=== PATIENT | male | born 1945 | race Caucasian/White ===

== ENCOUNTER 2016-03-28 10:32 | Emergency (ER) | payer MEDICARE, OTHER ==
[2016-03-28] MEDS ORDERED: Adacel Vial IM ONE ×2 (10:52→10:57)
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
[2016-03-28 11:13] LABS: BASOPHIL % 0.4 % (0.0-0.4); Eosinophil % 2.9 % (0.00-5.0); Granulocytes % 69.1 % (36.0-66.0); Lymphocytes % 15.6 % (24.0-44.0); Mean Corpuscular Hemoglobin 31.5 pg (26-32); Mean Platelet Volume 9.9 fl (6-9.5); Platelet Count 325 K/mm3 (150-450); Red Cell Distribution Width 14.8 % (11.5-14.0); White Blood Count 6.9 K/mm3 (4.0-10.5)
[2016-03-28 11:26] LABS: Collection Type CCMS; Ph 5.5 (5-6)
[2016-03-28 11:27] LABS: Bacteria FEW /HPF (NEGATIVE); COMPLETE URINE MICROSCOPIC? YES; Epithelial Cells FEW /HPF (FEW)
[2016-03-28 11:43] LABS: ALBUMIN 3.5 g/dL (3.4-5.0); ANION GAP 11.6 MEQ/L (5-15); BILIRUBIN,TOTAL 0.4 mg/dL (0.2-1.0); Carbon Dioxide 28.6 mEq/L (21-32); Potassium 4.2 mEq/L (3.5-5.1); Total Protein 7.3 gm/dL (6.4-8.2)
[2016-03-28 11:45] VITALS: BP 152/86; PULSE 80
[2016-03-28 12:35] VITALS: O2SAT 94
--- NOTE | 2016-03-28 21:00 | XRAY ---
Indication: Swelling. Two-dimensional sonogram and color Doppler imaging of the major venous vessels of the left upper extremity was performed. Comparison: None No thrombus seen in the visualized left jugular, subclavian, axillary, basilic, brachial, cephalic, median cubital, radial, and ulnar veins. Extremity veins demonstrate normal compressibility. Venous waveforms are normal with and without augmentation. Impression: Left upper extremity negative for DVT. Comment: Preliminary report was given.
--- NOTE | 2016-03-28 21:01 | XRAY ---
Indication: Swelling. Comparison: None 2 views of the left forearm demonstrates diffuse soft tissue swelling/edema and faint vascular calcifications. No other bony, articular, or soft tissue abnormalities.
== END 2016-03-28 12:40 | disposition home or self-care (01) ==
LOC: ED 10:32
DX: M79.632 Pain in left forearm (principal); M79.89 Other specified soft tissue disorders; S50.812A Abrasion of left forearm, initial encounter; W54.8XXA Other contact with dog, initial encounter
CPT/HCPCS: 36415; 73090; 80053; 81000; 85025; 90471; 90715; 93971; 96372; 99283

== ENCOUNTER 2017-04-16 17:38 | Emergency (ER) | payer MEDICARE ==
[2017-04-16] MEDS ORDERED: NEOSYNEPHRINE 0.5% NASAL SPRAY/DROPS NS ONE (17:58)
[2017-04-16] MEDS ORDERED: NEOSYNEPHRINE 0.5% NASAL SPRAY/DROPS ONE (18:02)
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
[2017-04-16 18:21] VITALS: BP 135/89; PULSE 88
[2017-04-16 18:46] VITALS: O2SAT 95
== END 2017-04-16 18:53 | disposition home or self-care (01) ==
LOC: ED 17:38
DX: R04.0 Epistaxis (principal); Z86.73 Personal history of transient ischemic attack (TIA), and cerebral infarction without residual deficits; I48.91 Unspecified atrial fibrillation
CPT/HCPCS: 99282; A9270-GY

== ENCOUNTER 2017-12-27 15:44 | Emergency (ER) | payer MEDICARE ==
[2017-12-27 16:00] VITALS: BP 110/76; PULSE 76; O2SAT 93
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
[2017-12-27 16:28] LABS: Hematocrit 46.4 % (42-50); Hemoglobin 15.2 gm/dl (12.5-18.0); Mean Cell Volume 94.7 fl (78-100); Mean Corpuscular Hgb Concent. 32.8 g/dl (32-36); Mean Platelet Volume 9.7 fl (6-9.5); Platelet Count 321 K/mm3 (150-450); Red Cell Distribution Width 14.7 % (11.5-14.0); White Blood Count 10.7 K/mm3 (4.0-10.5)
[2017-12-27 16:31] LABS: INR 1.5 (0.8-3.0)
[2017-12-27 16:36] LABS: ALBUMIN 3.8 g/dL (3.5-5.0); ALKALINE PHOSPHATASE 55 U/L (38-126); ANION GAP 13.6 MEQ/L (5-15); BLOOD UREA NITROGEN 20 mg/dL (9-20); CHLORIDE 102 mmol/L (98-107); Calcium 9.5 mg/dL (8.4-10.2); Carbon Dioxide 27 mmol/L (22-30); Creatinine 1 1.09 mg/dL (0.66-1.25); Glucose 101 mg/dL (74-106); Potassium 4.2 mmol/L (3.5-5.1); SGOT/AST 25 U/L (17-59); SGPT/ALT 28 U/L (0-50); SODIUM 138 mmol/L (137-145); Total Protein 6.6 g/dL (6.3-8.2)
[2017-12-27 17:49] LABS: ANISOCYTOSIS 1+; Eosinophil 5 % (0.00-3.0); Lymphocytes 10 % (24-44); Monocyte 4 % (0.0-12.0); Neutrophils 81 % (36.-66.); Platelet Estimate NORMAL (NORMAL); Total Cells Counted 100
== END 2017-12-27 17:21 | disposition home or self-care (01) ==
LOC: ED 15:44
DX: R04.0 Epistaxis (principal); I10 Essential (primary) hypertension; Z79.01 Long term (current) use of anticoagulants; Z79.899 Other long term (current) drug therapy; Z86.73 Personal history of transient ischemic attack (TIA), and cerebral infarction without residual deficits; I48.91 Unspecified atrial fibrillation
CPT/HCPCS: 30901; 36415; 80053; 85025; 85610; 99283

== ENCOUNTER 2017-12-28 13:27 | Emergency (ER) | payer MEDICARE ==
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
[2017-12-28 14:15] VITALS: BP 108/66; PULSE 75; O2SAT 97
== END 2017-12-28 14:31 | disposition home or self-care (01) ==
LOC: ED 13:27
DX: Z46.89 Encounter for fitting and adjustment of other specified devices (principal)
CPT/HCPCS: 99283

== ENCOUNTER 2019-02-16 14:41 | Inpatient (IN) | payer MEDICARE ==
[2019-02-16] MEDS ORDERED: Sodium Chloride 0.9% 1000 ML 1,000 ML IV STA (14:48)
[2019-02-16] MEDS ORDERED: BABY ASPIRIN 81 MG CHEW PO ONE (14:48)
[2019-02-16] MEDS ORDERED: Zofran 4 MG/2 ML VIAL IV ONE (14:50)
[2019-02-16] MEDS ORDERED: Sodium Chloride 0.9% 1000 ML 1,000 ML ONE (14:58)
[2019-02-16] MEDS ORDERED: Zofran 4 MG/2 ML VIAL ONE (14:58)
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
[2019-02-16 15:33] LABS: Absolute Neutrophil Ct (ANC) 17.18 (1.4-6.9); BASOPHIL % 0.1 % (0.0-0.4); Basophil (Absolute #) 0.02 (0-0.4); Eosinophil % 0.7 % (0.00-5.0); Eosinophil (Absolute #) 0.14 (0-0.5); Hematocrit 54.9 % (42-50); Hemoglobin 17.7 gm/dl (12.5-18.0); Lymphocyte (Absolute #) 0.61 (1.0-4.6); Lymphocytes % 3.2 % (24.0-44.0); Mean Corpuscular Hemoglobin 30.3 pg (26-32); Mean Corpuscular Hgb Concent. 32.2 g/dl (32-36); Mean Platelet Volume 10.4 fl (6-9.5); Monocyte (Absolute #) 0.87 (0.0-1.3); Monocytes % 4.6 % (0.0-12.0); Neutrophil % 91.4 % (36.0-66.0); Platelet Count 335 K/mm3 (150-450); Red Blood Count 5.84 M/mm3 (4.1-5.6); Red Cell Distribution Width 15.9 % (11.5-14.0); White Blood Count 18.8 K/mm3 (4.0-10.5)
[2019-02-16 15:36] LABS: A-aADO2 60; ARTERIAL BLD GAS O2 SATURATION 99 % (95-100); ARTERIAL BLOOD GAS BASE EXCESS -6.6 (-2.0-2.0); ARTERIAL BLOOD GAS PCO2 27 mmHg (35-45); ARTERIAL BLOOD GAS PO2 163 mmHg (75-100); ARTERIAL BLOOD GAS pH 7.39 (7.35-7.45); CARBON DIOXIDE 17 mEq/L (23-27); HCO3- 16.3 (22-28); paO2 pAO1 0.73
[2019-02-16 15:37] LABS: ABG HEMOGLOBIN 18.1; ABG POTASSIUM 4.8 (3.5-5.1); ARTERIAL BLOOD GAS FIO2 36 %; CARBOXYHEMOGLOBIN 1.9 % THgb (0.0-6.9); HGB O2 SAT 96 g/dF (94-100); Methhemoglobin 1.2 % (1.4-1.5)
[2019-02-16 15:38] LABS: ABG SITE RIGHT RADIAL; ALLEN TEST OK? YES
[2019-02-16 16:12] LABS: INFLUENZA A NEGATIVE (NEGATIVE); INFLUENZA B NEGATIVE (NEGATIVE); RESPIRATORY SYNCTIAL VIRUS NEGATIVE (Negative)
[2019-02-16 16:21] LABS: ALBUMIN 4.3 g/dL (3.5-5.0); ALKALINE PHOSPHATASE 58 U/L (38-126); ANION GAP 15.9 MEQ/L (5-15); BLOOD UREA NITROGEN 27 mg/dL (9-20); CHLORIDE 107 mmol/L (98-107); Carbon Dioxide 25 mmol/L (22-30); Creatinine 1 1.41 mg/dL (0.66-1.25); ETHYL ALCOHOL < 10 mg/dL (0-10); Glucose 104 mg/dL (74-106); LIPASE 85 U/L (23-300); NT PRO BNP 1520 pg/mL (0-900); Potassium 5.4 mmol/L (3.5-5.1); SGOT/AST 30 U/L (17-59); SGPT/ALT 20 U/L (0-50); SODIUM 143 mmol/L (137-145); Total Protein 8.2 g/dL (6.3-8.2)
--- NOTE | 2019-02-16 16:40 | XRAY ---
Indication: Short of breath. Comparison: February 23, 2017. PA/lateral chest again hyperinflated with new minimal bibasilar discoid atelectasis/scarring. Upper lungs clear. Heart is not enlarged. Bony thorax intact again with mild osteopenia and degenerative changes. Impression: Nonacute hyperinflated chest with chronic features.
[2019-02-16] MEDS ORDERED: Zithromax 500 MG/ 250 ML NaCl Premix 500 MG/250 ML IVPB IV ONE (16:45)
[2019-02-16] MEDS: Zithromax 500 MG/ 250 ML NaCl Premix 500 MG/250 ML IVPB IV SCH (16:47)
[2019-02-16] MEDS ORDERED: PROVENTIL 2.5 MG/3 ML NEB IH PRN (17:56)
[2019-02-16] MEDS ORDERED: TYLENOL 325 MG PO PRN (18:34)
[2019-02-16] MEDS ORDERED: Zofran 4 MG/2 ML VIAL IV PRN (18:36)
[2019-02-16] MEDS ORDERED: MOTRIN 600 MG PO PRN (18:36)
[2019-02-16] MEDS ORDERED: PROVENTIL 2.5 MG/3 ML NEB IH SCH (19:00)
[2019-02-16] MEDS: Sodium Chloride 0.9% 1000 ML 1,000 ML IV SCH (19:22)
[2019-02-16] MEDS: DUONEB 0.5-3 MG/3 ml Neb IH SCH ×2 (19:52→23:49)
[2019-02-16] MEDS: COREG 12.5 MG PO SCH (21:52)
[2019-02-16] MEDS: ZOCOR 20MG PO SCH (21:53)
[2019-02-16] MEDS ORDERED: LOTRIMIN CREAM 30 GM TP SCH (22:00)
[2019-02-17] MEDS: DUONEB 0.5-3 MG/3 ml Neb IH SCH ×6 (03:30→23:21)
[2019-02-17 04:57] LABS: BASOPHIL % 0.1 % (0.0-0.4); Basophil (Absolute #) 0.01 (0-0.4); Eosinophil % 0.1 % (0.00-5.0); Eosinophil (Absolute #) 0.01 (0-0.5); Hematocrit 46.4 % (42-50); Hemoglobin 14.8 gm/dl (12.5-18.0); Lymphocyte (Absolute #) 0.46 (1.0-4.6); Lymphocytes % 4.9 % (24.0-44.0); Mean Cell Volume 94.7 fl (78-100); Mean Corpuscular Hemoglobin 30.2 pg (26-32); Mean Corpuscular Hgb Concent. 31.9 g/dl (32-36); Monocyte (Absolute #) 0.13 (0.0-1.3); Monocytes % 1.4 % (0.0-12.0); Neutrophil % 93.5 % (36.0-66.0); Platelet Count 305 K/mm3 (150-450); Red Cell Distribution Width 15.8 % (11.5-14.0); White Blood Count 9.4 K/mm3 (4.0-10.5)
[2019-02-17 05:25] LABS: ANION GAP 13.5 MEQ/L (5-15); BLOOD UREA NITROGEN 29 mg/dL (9-20); CHLORIDE 109 mmol/L (98-107); Carbon Dioxide 23 mmol/L (22-30); Creatinine 1 1.23 mg/dL (0.66-1.25); Glucose 120 mg/dL (74-106); Potassium 4.4 mmol/L (3.5-5.1); SODIUM 141 mmol/L (137-145)
[2019-02-17] MEDS ORDERED: PROVENTIL 2.5 MG/3 ML NEB IH ONE (06:51)
[2019-02-17 07:03] LABS: Slide Review 1 YES
[2019-02-17] MEDS: ELIQUIS 2.5 MG TABLET PO SCH ×2 (10:48→20:33)
[2019-02-17] MEDS: Imdur 30 MG PO SCH (10:48)
[2019-02-17] MEDS: COREG 12.5 MG PO SCH ×2 (10:49→20:33)
[2019-02-17] MEDS: Pepcid 20 MG PO SCH (10:49)
[2019-02-17] MEDS: LOTRIMIN CREAM 30 GM TP SCH ×2 (10:49→20:37)
--- NOTE | 2019-02-17 13:08 | HP ---
HISTORY OF PRESENT ILLNESS: This is a 73 year-old patient of mine with multiple chronic health problems. He presented to the emergency department after having diarrhea and vomiting for one day. His daughter reported that he could not get to the bathroom before having the loose stool so she called the ambulance to have him brought to the emergency department. He was found to be hypoxic in the emergency department. He reported feeling much better today. When I saw him this morning he said he had no more stools and was asking to go home. REVIEW OF SYSTEMS: No fever. He has a dry cough that is nonproductive at baseline. No abdominal pain. No chest pain. No shortness of breath. No rashes. No lower extremity edema. MEDICATIONS: Please see the home medication reconciliation form. ALLERGIES: NKDA. PAST MEDICAL HISTORY: Stroke causing right hemiparesis that happened February 2017. Hypertension. Atrial fibrillation. Chronic obstructive pulmonary disease that has been mild in the past. Pressure ulcer in the past. Aphasia. PAST SURGICAL HISTORY: Cholecystectomy. 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 SOCIAL HISTORY: He is a former smoker. He stays with his granddaughter, Arvin, who is his main caregiver. FAMILY HISTORY: Noncontributory. PHYSICAL EXAMINATION: VITAL SIGNS: Temperature current 98.2F, temperature max 98.2F, heart rate 95, respiratory rate 18, blood pressure 105/56. Oxygen saturation 96% on 3 liters. GENERAL: He is sitting up in bed. His speech is hard to understand but he is alert. His granddaughter is at the bedside. His speech being hard to understand is his baseline. He is wearing oxygen by nasal cannula at 3 liters. CVS: His heart has an irregularly irregular rhythm with a normal rate. CHEST: Distant breath sounds throughout. No crackles or wheezes are appreciated. No retractions. ABDOMEN: Soft, nontender, nondistended with normal bowel sounds. EXTREMITIES: No clubbing, cyanosis or edema. SKIN: Warm, dry and intact. LABORATORY DATA AND TESTS: On admission white blood cell count was 18,800 and now 9,400. Hemoglobin and PLT count are normal. Potassium was 5.4 on admission and now 4.4. Creatinine was 1.4 and now 1.2. BNP was elevated at 1,520. Influenza A and B, respiratory syncytial virus were negative. Chest x-ray was read as nonacute hyperinflated chest with chronic features. ASSESSMENT AND PLAN: 1) GASTROENTERITIS: This seems to have somewhat resolved, will continue with IV fluids at 50 ml/hour and observation. 2) CHRONIC OBSTRUCTIVE PULMONARY DISEASE EXACERBATION: He was started on DuoNeb as well as azithromycin and he is on 3 liters of oxygen. Will try to wean the oxygen down if he wants to go home and does not have home oxygen. He usually does not require oxygen. 3) HISTORY OF ATRIAL FIBRILLATION: Will continue his home medication. 4) HISTORY OF CVA: Continue with home medications. 5) ACUTE KIDNEY INJURY: This has much improved with IV fluids, will continue to monitor.
[2019-02-17] MEDS: ZOCOR 20MG PO SCH (20:33)
[2019-02-17] MEDS ORDERED: Phenergan 25 MG INJ IV PRN (21:24)
[2019-02-18] MEDS: Sodium Chloride 0.9% 1000 ML 1,000 ML IV SCH (00:21)
[2019-02-18] MEDS ORDERED: ROCEPHIN 1 Gm-D5w 50 ml Bag** 1 G/50 ML IVPB IV SCH ×2 (01:00→22:00)
[2019-02-18] MEDS: DUONEB 0.5-3 MG/3 ml Neb IH SCH ×3 (03:18→12:00)
[2019-02-18 03:31] VITALS: BP 99/55
--- NOTE | 2019-02-18 08:17 | XRAY ---
Indication: Possible aspiration from vomiting. Comparison: February 16, 2019. Portable chest unchanged again demonstrating bibasilar discoid atelectasis/scarring without focal infiltrate, consolidation, or large effusion. Heart is not enlarged. No new/acute findings. Comment: Preliminary interpretation was made by [facility]. No critical discrepancy.
[2019-02-18] MEDS: Zithromax 500 MG/ 250 ML NaCl Premix 500 MG/250 ML IVPB IV SCH (08:53)
[2019-02-18] MEDS: COREG 12.5 MG PO SCH (08:53)
[2019-02-18] MEDS: Imdur 30 MG PO SCH (08:54)
[2019-02-18] MEDS: ELIQUIS 2.5 MG TABLET PO SCH (08:54)
[2019-02-18] MEDS: Pepcid 20 MG PO SCH (08:54)
[2019-02-18] MEDS: LOTRIMIN CREAM 30 GM TP SCH (09:03)
[2019-02-18] MEDS ORDERED: FLUZONE HIGH-DOSE 2019-20 SYR IM ONE ×2 (10:00→13:00)
[2019-02-18 12:35] VITALS: PULSE 80; O2SAT 96
--- NOTE | 2019-02-18 13:29 | PCM.DS ---
Discharge Summary Date of Admission: 02/16/19 17:29 Admitting Physician: AYLA ASTORGA MD Primary Care Provider: CECIL LOPEZ Allergies Allergies No Known Drug Allergies Allergy (Verified 02/16/19 14:57) Hospital Summary - Hospital Course Hospital Course: Pt is a 73 yo male pt of Dr. Lopez with hx CVA (with speech deficit), hx afib, HTN, COPD and HPV who was admitted with gastroenteritis and COPD exacerbation. He has been on duonebs and zithromax, no steroids required. Initially he had some diarrhea but that has resolved. He did vomit once last night, but has been dixon po today with no nausea or vomiting. His breathing is good. He let me know, with some difficulty but in no uncertain terms, that he wants to go home. Last night after he vomiting the nurse was afraid he may have aspirated; however CXR showed no change and he has had no lingering sequela. He is not on any O2 at home. Has been on 3L O2 NC here; will qualify him for O2 at home prior to discharge. Home on po zithromax to finish 5 days. F/u with Dr. Lopez. - Vitals & Intake/Output Vital Signs: Vital Signs Temperature 96.9 F 02/18/19 12:00 Pulse Rate 80 02/18/19 12:00 Respiratory Rate 20 02/18/19 12:00 Blood Pressure 99/55 02/18/19 02:00 O2 Sat by Pulse Oximetry 96 02/18/19 12:00 Oxygen-Last Documented O2 Percentage 3 Liters = 32% Intake & Output: Intake & Output 02/16/19 02/17/19 02/18/19 02/19/19 11:59 11:59 11:59 11:59 Intake Total 1940 2586 240 Output Total 202 Balance 1940 2384 240 Weight 69.8 kg 70 kg - Lab Result Diagrams: 02/17/19 04:35 02/17/19 04:35 Micro Results-Entire Visit: Microbiology 02/16/19 15:50 Blood Culture - Preliminary Blood NO GROWTH TO DATE 02/16/19 15:30 Blood Culture - Preliminary Blood NO GROWTH TO DATE - Radiology Exams Ordered Rad Exams-Entire Visit: Radiology Procedures Category Date Time Status CHEST 1 VIEW (PORTABLE) Stat Exams 02/18/19 00:01 Completed CHEST 2 VIEWS (PA AND LAT) Stat Exams 02/16/19 14:48 Completed - Procedures and Test Procedures and Tests throughout Hospitalization: Therapy Orders & Screens 02/16/19 14:53 EKG STAT Comment: 02/16/19 17:56 Oxygen NASAL CANNULA 3 lpm Comment: Diagnosis: COPD exacerbation with hypoxia Peak Expiratory Flow Rate ONCE Comment: Reason For Exam: Diagnosis: COPD exacerbation with hypoxia Respiratory Therapy Assessment DAILY Comment: Diagnosis: COPD exacerbation with hypoxia 02/16/19 18:31 RT Screen per Nursing Assess ONCE Comment: Protocol Order Physician Instructions: Greater than 3 points order RT Admission Screen Reason For Exam: Triggered on Admission Diagnosis: copd exacerbation Diagnosis: copd exacerbation Pneumonia: No Home O2: No Asthma: No CHF: Yes Home CPAP/BIPAP: No Home Nebs/MDI: Yes Total Points: 8 Discharge Exam General Appearance: no apparent distress, alert Neurologic Exam: cooperative, other (speech is at times garbled, but with effort he can say things clearly. Comprehension appears unimpaired.) Eye Exam: eyes nml inspection Ears, Nose, Throat Exam: moist mucous membranes Neck Exam: normal inspection Respiratory Exam: lungs clear, diminished breath sounds, No crackles/rales, No rhonchi, No wheezing Cardiovascular Exam: regular rate/rhythm, normal heart sounds, No murmur Back Exam: normal inspection, No rash Extremity Exam: normal inspection, No pedal edema, No swelling Skin Exam: normal color, warm, dry, No rash Final Diagnosis/Problem List - Final Discharge Diagnosis/Problem (1) COPD exacerbation Current Visit: Yes Status: Acute Assessment & Plan: Home to finish 7d zithromax. Code(s): J44.1 - CHRONIC OBSTRUCTIVE PULMONARY DISEASE W (ACUTE) EXACERBATION (2) Acute hypoxemic respiratory failure Current Visit: Yes Status: Acute Assessment & Plan: Home on O2. Pt is SCO, would be more comfortable at home. Can do duonebs, O2, and po antibiotics there. Code(s): J96.01 - ACUTE RESPIRATORY FAILURE WITH HYPOXIA (3) Atrial fibrillation Current Visit: Yes Status: Chronic Assessment & Plan: On Eliquis. Code(s): I48.91 - UNSPECIFIED ATRIAL FIBRILLATION (4) Aphasia as late effect of stroke Current Visit: No Status: Chronic Code(s): I69.320 - APHASIA FOLLOWING CEREBRAL INFARCTION - Discharge Disposition: Home, Self-Care Condition: Stable Prescriptions: New Albuterol/Ipratropium 3ml Neb* [DUONEB 0.5-3 MG/3 ml Neb] 3 ml IH QID PRN # 30 ampul.neb PRN Reason: Cough Azithromycin [Zithromax] 250 mg PO DAILY #2 tablet Continue Lisinopril [Zestril] 2.5 mg PO DAILY Famotidine 20 mg [Pepcid 20 MG] 40 mg PO DAILY Atorvastatin Calcium 40 mg PO HS Albuterol Sulfate Mdi [Proair Hfa MDI] 2 puffs IH QID Clotrimazole [Lotrimin AF] 12 gm TP BID Carvedilol 25 mg PO BID #0 Isosorbide Mononitrate [Isosorbide Mononitrate ER] 30 mg DAILY Apixaban [Eliquis] 5 mg PO BID Follow up with: CECIL LOPEZ [Primary Care Provider] - 1 Week
== END 2019-02-18 16:00 | disposition home or self-care (01) | DRG 190 ==
LOC: ED 14:41 → MED SURG 17:29
PROVIDERS: ADMIT Family Medicine; ATTEND Internal Medicine
DX: J44.1 Chronic obstructive pulmonary disease with (acute) exacerbation (principal); J96.01 Acute respiratory failure with hypoxia; N17.9 Acute kidney failure, unspecified; I48.91 Unspecified atrial fibrillation; I69.320 Aphasia following cerebral infarction; Z79.01 Long term (current) use of anticoagulants; Z79.899 Other long term (current) drug therapy; K52.9 Noninfective gastroenteritis and colitis, unspecified; I10 Essential (primary) hypertension
CPT/HCPCS: 36000; 36415; 36600; 71045; 71046; 80048; 80053; 82375; 82803; 83605; 83690; 83880; 84484; 85025; 87040; 87631; 94150; 94640; 94760; 96360; 96374; 99285; G0480; 80307; 90662; J0456; J0696; J2405; J2550; J7609; A9270-GY

== ENCOUNTER 2019-02-23 13:44 | Observation (INO) | payer MEDICARE ==
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
--- NOTE | 2019-02-23 14:11 | XRAY ---
Indication: Short of breath. Comparison: February 18, 2019. Portable chest hyperinflated again with minimal bibasilar fibrosis/scarring. No focal infiltrate, consolidation, or large effusion. Heart and mediastinal structures within normal limits. Impression: Nonacute hyperinflated chest with chronic features.
[2019-02-23 14:36] LABS: Hemoglobin 15.8 gm/dl (12.5-18.0); Mean Cell Volume 95.1 fl (78-100); Mean Corpuscular Hgb Concent. 31.6 g/dl (32-36); Mean Platelet Volume 10.7 fl (6-9.5); Platelet Count 248 K/mm3 (150-450); Red Blood Count 5.26 M/mm3 (4.1-5.6); Red Cell Distribution Width 15.6 % (11.5-14.0); White Blood Count 10.7 K/mm3 (4.0-10.5)
[2019-02-23 14:42] LABS: A-aADO2 43; ABG POTASSIUM 4.3 (3.5-5.1); ARTERIAL BLOOD GAS BASE EXCESS 0.9 (-2.0-2.0); ARTERIAL BLOOD GAS PCO2 57 mmHg (35-45); ARTERIAL BLOOD GAS PO2 114 mmHg (75-100); ARTERIAL BLOOD GAS pH 7.31 (7.35-7.45); CARBOXYHEMOGLOBIN 1.8 % THgb (0.0-6.9); HCO3- 28.7 (22-28); HGB O2 SAT 96.6 g/dF (94-100); Lactic Acid 0.6 (0.4-2.0); Methhemoglobin 0.7 % (1.4-1.5); paO2 pAO1 0.73
[2019-02-23 14:43] LABS: ABG SITE RIGHT BRACHIAL
[2019-02-23 14:44] LABS: ALLEN TEST OK? YES
[2019-02-23 14:54] LABS: INR 1.47 (0.8-3.0); PROTIME 16.8 SECONDS (8.83-12.87)
[2019-02-23 15:06] LABS: ALBUMIN 3.8 g/dL (3.5-5.0); ALKALINE PHOSPHATASE 63 U/L (38-126); BLOOD UREA NITROGEN 12 mg/dL (9-20); CHLORIDE 104 mmol/L (98-107); Calcium 9.1 mg/dL (8.4-10.2); Carbon Dioxide 35 mmol/L (22-30); Creatinine 1 0.91 mg/dL (0.66-1.25); Glucose 122 mg/dL (74-106); NT PRO BNP 2600 pg/mL (0-900); Potassium 4.5 mmol/L (3.5-5.1); SGOT/AST 36 U/L (17-59); SGPT/ALT 37 U/L (0-50); SODIUM 143 mmol/L (137-145); Total Protein 7.2 g/dL (6.3-8.2)
[2019-02-23] MEDS ORDERED: Lasix 40 MG/4 ML IV ONE (15:14)
[2019-02-23] MEDS ORDERED: Lasix 40 MG/4 ML ONE (15:24)
[2019-02-23 15:41] LABS: Eosinophil 5 % (0.00-3.0); Lymphocytes 21 % (24-44); Monocyte 2 % (0.0-12.0); Neutrophils 72 % (36.-66.); Total Cells Counted 100
[2019-02-23 15:43] LABS: ANISOCYTOSIS 1+; Platelet Estimate NORMAL (NORMAL)
[2019-02-23 16:26] LABS: INFLUENZA A NEGATIVE (NEGATIVE); INFLUENZA B NEGATIVE (NEGATIVE); RESPIRATORY SYNCTIAL VIRUS NEGATIVE (Negative)
[2019-02-23 16:34] LABS: Appearance CLEAR (CLEAR); Bilirubin NEGATIVE (NEGATIVE); Blood NEGATIVE Ery/ul (0-5); Glucose NEGATIVE (NEGATIVE); Hyaline Casts 0-2 /LPF (0-2); Ketones NEGATIVE (NEGATIVE); Leukocyte Esterase NEGATIVE (NEGATIVE); Mucus SLIGHT /HPF (NEGATIVE); Nitrite NEGATIVE (NEGATIVE); Protein,Urine Dip NEGATIVE (Negative); Specific Gravity 1.009 (1.005-1.025); Urobilinogen NEGATIVE mg/dL (0-1); WBC 0-2 /HPF (0-5)
[2019-02-23] MEDS ORDERED: solu-MEDROL 125 MG IV ONE (17:09)
[2019-02-23] MEDS ORDERED: solu-MEDROL 125 MG ONE (17:43)
[2019-02-23] MEDS ORDERED: TYLENOL 325 MG PO PRN (18:16)
[2019-02-23] MEDS: Lasix 40 MG/4 ML IV SCH (19:02)
[2019-02-23] MEDS: solu-MEDROL 125 MG IV SCH ×2 (19:03→23:24)
[2019-02-23] MEDS ORDERED: DUONEB 0.5-3 MG/3 ml Neb IH ONE (19:15)
[2019-02-23] MEDS: DUONEB 0.5-3 MG/3 ml Neb IH SCH ×2 (19:21→23:17)
[2019-02-23] MEDS ORDERED: LOTRIMIN CREAM 30 GM TP PRN (20:52)
[2019-02-23] MEDS: Sodium Chloride 0.9% 1000 ML 1,000 ML IV SCH (21:20)
[2019-02-23] MEDS: ELIQUIS 2.5 MG TABLET PO SCH (21:21)
[2019-02-23] MEDS: ZOCOR 20MG PO SCH (21:21)
[2019-02-24 02:19] LABS: NT PRO BNP 2540 pg/mL (0-900)
[2019-02-24] MEDS: DUONEB 0.5-3 MG/3 ml Neb IH SCH ×6 (03:03→23:31)
[2019-02-24 03:05] LABS: TROPONIN < 0.012 ng/mL (0.000-0.034)
[2019-02-24] MEDS: Lasix 40 MG/4 ML IV SCH ×2 (03:49→17:49)
[2019-02-24 05:13] LABS: Hematocrit 45.4 % (42-50); Hemoglobin 14.5 gm/dl (12.5-18.0); Mean Cell Volume 93.6 fl (78-100); Mean Corpuscular Hemoglobin 29.9 pg (26-32); Mean Corpuscular Hgb Concent. 31.9 g/dl (32-36); Mean Platelet Volume 9.7 fl (6-9.5); Platelet Count 324 K/mm3 (150-450); Red Blood Count 4.85 M/mm3 (4.1-5.6); Red Cell Distribution Width 15.3 % (11.5-14.0); White Blood Count 12.6 K/mm3 (4.0-10.5)
[2019-02-24 06:03] LABS: ALBUMIN 3.5 g/dL (3.5-5.0); ALKALINE PHOSPHATASE 51 U/L (38-126); ANION GAP 12.1 MEQ/L (5-15); BLOOD UREA NITROGEN 15 mg/dL (9-20); CHLORIDE 100 mmol/L (98-107); Calcium 9.5 mg/dL (8.4-10.2); Carbon Dioxide 32 mmol/L (22-30); Creatinine 1 0.99 mg/dL (0.66-1.25); Glucose 225 mg/dL (74-106); Potassium 3.8 mmol/L (3.5-5.1); SGOT/AST 33 U/L (17-59); SGPT/ALT 30 U/L (0-50); SODIUM 140 mmol/L (137-145); Total Protein 6.6 g/dL (6.3-8.2)
[2019-02-24] MEDS ORDERED: DUONEB 0.5-3 MG/3 ml Neb IH ONE (07:03)
[2019-02-24 07:13] LABS: ATYPICAL LYMPHS 1 %; BAND 12 % (0.0-2.0); Lymphocytes 9 % (24-44); Monocyte 1 % (0.0-12.0); Neutrophils 77 % (36.-66.); Total Cells Counted 100
[2019-02-24 07:14] LABS: Platelet Estimate NORMAL (NORMAL)
[2019-02-24 07:15] LABS: Absolute Neutrophil Ct (ANC) 11.2 (1.4-6.9)
[2019-02-24] MEDS ORDERED: LOTRIMIN CREAM 30 GM TP PRN (07:30)
[2019-02-24] MEDS: solu-MEDROL 125 MG IV SCH ×3 (08:38→21:59)
[2019-02-24] MEDS: Coreg 6.25 MG PO SCH ×2 (09:03→21:59)
[2019-02-24] MEDS: ELIQUIS 2.5 MG TABLET PO SCH ×2 (09:04→21:59)
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
[2019-02-24] MEDS: Pepcid 20 MG PO SCH (09:22)
[2019-02-24] MEDS ORDERED: ALBUTEROL SULFATE MDI IH SCH (10:00)
[2019-02-24] MEDS: ZOCOR 20MG PO SCH (21:59)
[2019-02-25] MEDS: Sodium Chloride 0.9% 1000 ML 1,000 ML IV SCH (03:29)
[2019-02-25] MEDS: DUONEB 0.5-3 MG/3 ml Neb IH SCH ×4 (04:00→15:58)
[2019-02-25] MEDS: Lasix 40 MG/4 ML IV SCH ×2 (06:07→17:30)
[2019-02-25] MEDS: solu-MEDROL 125 MG IV SCH (06:07)
[2019-02-25 06:38] LABS: Hematocrit 47.7 % (42-50); Hemoglobin 15.5 gm/dl (12.5-18.0); Mean Cell Volume 93.2 fl (78-100); Mean Corpuscular Hemoglobin 30.3 pg (26-32); Mean Corpuscular Hgb Concent. 32.5 g/dl (32-36); Platelet Count 383 K/mm3 (150-450); Red Blood Count 5.12 M/mm3 (4.1-5.6); Red Cell Distribution Width 15.7 % (11.5-14.0); White Blood Count 22.9 K/mm3 (4.0-10.5)
[2019-02-25 06:59] LABS: ANION GAP 12.7 MEQ/L (5-15); BLOOD UREA NITROGEN 25 mg/dL (9-20); CHLORIDE 100 mmol/L (98-107); Calcium 9.3 mg/dL (8.4-10.2); Carbon Dioxide 29 mmol/L (22-30); Creatinine 1 1.12 mg/dL (0.66-1.25); Glucose 136 mg/dL (74-106); Potassium 3.9 mmol/L (3.5-5.1); SODIUM 138 mmol/L (137-145)
[2019-02-25] MEDS ORDERED: Zestril 5 MG PO SCH (10:00)
[2019-02-25] MEDS: Coreg 6.25 MG PO SCH (10:28)
[2019-02-25] MEDS: Pepcid 20 MG PO SCH (10:28)
[2019-02-25] MEDS ORDERED: NEOSYNEPHRINE 0.5% NASAL SPRAY/DROPS NS ONE (10:28)
[2019-02-25] MEDS: ELIQUIS 2.5 MG TABLET PO SCH (10:30)
[2019-02-25] MEDS ORDERED: Ativan 2 MG/1 ML VIAL IV ONE (12:41)
[2019-02-25] MEDS ORDERED: Ativan 0.5 MG PO PRN (12:41)
[2019-02-25 15:33] LABS: BAND 2 % (0.0-2.0); Lymphocytes 6 % (24-44); Monocyte 6 % (0.0-12.0); Neutrophils 86 % (36.-66.); Platelet Estimate NORMAL (NORMAL); Total Cells Counted 100
[2019-02-25 16:28] VITALS: BP 132/64; PULSE 82; O2SAT 91
[2019-02-25] MEDS ORDERED: solu-MEDROL 125 MG IV SCH (18:00)
== END 2019-02-25 19:20 | disposition home or self-care (01) ==
LOC: ED 13:44 → MED SURG 18:12
PROVIDERS: ADMIT Family Medicine; ATTEND Internal Medicine
DX: I50.9 Heart failure, unspecified (principal); J44.1 Chronic obstructive pulmonary disease with (acute) exacerbation; Z86.73 Personal history of transient ischemic attack (TIA), and cerebral infarction without residual deficits; Z99.81 Dependence on supplemental oxygen; I48.91 Unspecified atrial fibrillation; J96.11 Chronic respiratory failure with hypoxia; I10 Essential (primary) hypertension; Z79.01 Long term (current) use of anticoagulants; Z79.899 Other long term (current) drug therapy; I42.9 Cardiomyopathy, unspecified; E78.5 Hyperlipidemia, unspecified; I25.10 Atherosclerotic heart disease of native coronary artery without angina pectoris
CPT/HCPCS: 36000; 36415; 36600; 71045; 80048; 80053; 81001; 82375; 82803; 83605; 83735; 83880; 84484; 85025; 85379; 85610; 87631; 93005; 93041; 93268; 93306; 94002; 94003; 94150; 94640; 94660; 94760; 96374; 96376; 99285; J1940; J2060; J2930; Q3014; A9270-GY; G0378

== ENCOUNTER 2019-10-15 23:10 | Emergency (ER) | payer MEDICARE ==
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
[2019-10-15 23:44] LABS: Absolute Neutrophil Ct (ANC) 8.99 (1.4-6.9); BASOPHIL % 0.5 % (0.0-0.4); Basophil (Absolute #) 0.06 (0-0.4); Eosinophil % 4.8 % (0.00-5.0); Hematocrit 45.9 % (42-50); Hemoglobin 14.9 gm/dl (12.5-18.0); Lymphocyte (Absolute #) 1.51 (1.0-4.6); Lymphocytes % 12.1 % (24.0-44.0); Mean Cell Volume 94.6 fl (78-100); Mean Corpuscular Hemoglobin 30.7 pg (26-32); Mean Corpuscular Hgb Concent. 32.5 g/dl (32-36); Mean Platelet Volume 9.8 fl (7.5-11.0); Monocyte (Absolute #) 1.33 (0.0-1.3); Monocytes % 10.6 % (0.0-12.0); Platelet Count 312 K/mm3 (150-450); Red Blood Count 4.85 M/mm3 (4.1-5.6); Red Cell Distribution Width 15.5 % (11.5-14.0); White Blood Count 12.5 K/mm3 (4.0-10.5)
[2019-10-15 23:52] LABS: INR 1.15 (0.8-3.0)
[2019-10-15 23:55] LABS: ANION GAP 9.8 MEQ/L (5-15); BLOOD UREA NITROGEN 16 mg/dL (9-20); CHLORIDE 110 mmol/L (98-107); Calcium 9.3 mg/dL (8.4-10.2); Carbon Dioxide 24 mmol/L (22-30); Creatinine 1 1.23 mg/dL (0.66-1.25); Glucose 116 mg/dL (74-106); Potassium 4.2 mmol/L (3.5-5.1); SODIUM 140 mmol/L (137-145)
[2019-10-16] MEDS ORDERED: ARZOL Silver Nitrate Applicator TP ONE ×3 (00:01→00:07)
[2019-10-16 01:06] VITALS: BP 142/87; PULSE 88; O2SAT 97
== END 2019-10-16 01:19 | disposition home or self-care (01) ==
LOC: ED 23:10
DX: N50.9 Disorder of male genital organs, unspecified (principal); I50.9 Heart failure, unspecified; I48.91 Unspecified atrial fibrillation; Z79.01 Long term (current) use of anticoagulants; Z79.899 Other long term (current) drug therapy; J44.9 Chronic obstructive pulmonary disease, unspecified; R58 Hemorrhage, not elsewhere classified
CPT/HCPCS: 36415; 80048; 85025; 85610; 99283; A9270-GY